=== PATIENT | male | born 1950 | race Caucasian/White ===

== ENCOUNTER 2023-10-06 13:29 | Outpatient (AMB) | payer MEDICARE, SELFPAY ==
--- NOTE | 2023-10-06 14:30 | MHC.OFFWIV ---
Intake Vital Signs 10/06/23 14:34 Height 5 ft 6 in Weight 186 lb BMI 30.0 BP 120/60 Blood Pressure Location Lt brachial Position Sitting Pulse 72 Pulse Source Pulse Oximeter Temp 98.3 F Temp Source Oral Pulse Oximetry (%) 96 Oxygen Delivery Method Room Air Intake Visit Reasons: [employer], pain left side of rib Intake Note: Pt is here today c/o Lt mid back pain: He says has a hx of kidney stones Patient Tobacco Use Status: Former Tobacco user Allergies Penicillins Adverse Reaction (Verified 10/06/23 14:34) rash HPI HPI Comments History of Present Illness Details This is a 73-year-old male with a past medical history of BPH currently maintained on tamsulosin and finasteride, hyperlipidemia, CVA currently anticoagulated with Coumadin, rbw-pabpwwr-gwjdrwyey diabetes and hypertension presenting for evaluation of left flank pain that he has had for the past 1 day. He reports that he is not urinating as frequently, but denies any dysuria or hematuria. Patient reports having kidney stones bilaterally and he passed a right-sided kidney stone approximately 1 month ago. Patient is followed in Urology by Dr. Liz. [facility] Social History Patient Tobacco Use Status: Former Tobacco user Review of Systems Const All systems reviewed & are unremarkable except as noted in HPI and below Denies chills, Denies fatigue and Denies fever(s) GI Reports abdominal pain (left flank pain) Reports as per HPI, Denies hematuria, Reports oliguria, Reports difficulty urinating and Denies urinary frequency Neuro Reports no additional complaints Psych Reports no additional complaints Endo Reports no additional complaints and Denies fatigue Physical Exam Vital Signs: Last Vital Signs Temp 98.3 F 10/06/23 14:34 Pulse 72 10/06/23 14:34 BP 120/60 10/06/23 14:34 Pulse Ox 96 10/06/23 14:34 Oxygen Delivery Method Room Air 10/06/23 14:34 BMI result Body Mass Index 30.0 Const General: cooperative, healthy appearing, comfortable and no acute distress Nutritional Appearance: overweight Orientation/consciousness: patient oriented x3 Limitations: no limitations GI Palpation (GI): Tenderness to palpation present (GI) (left flank; no CVAT bilaterally) Auscultation: normal bowel sounds General: Yes bladder normal to palpation and Yes no CVA tenderness Back/Spine/Pelvis Back: no CVA tenderness Skin General skin exam: no rashes or lesions noted (no lesions noted on the left flank) Neuro General: patient oriented x3 Psych Appearance: grossly normal Mental Status: mental status grossly normal Insight: Good insight present (Psych) Judgement: Good judgement present (Psych) Results AMB Urinalysis, Automated UA Leukoctes 0 Norm/uL Last Edit by Susan Kerns CMA on 10/06/23 14:54 UA Nitrite Negative Last Edit by Susan Kerns CMA on 10/06/23 14:54 UA Urobilinogen 0.2 mg/dL Last Edit by Susan Kerns CMA on 10/06/23 14:54 UA Protein 15 mg/dL Last Edit by Susan Kerns CMA on 10/06/23 14:54 UA pH 5.5 Last Edit by Susan Kerns CMA on 10/06/23 14:54 UA Blood 200 Mickey/uL Last Edit by Susan Kerns, ANA on 10/06/23 14:54 UA Specific [place] 1.030 Last Edit by Susan Kerns CMA on 10/06/23 14:54 UA Ketone Negative Last Edit by Susan Kerns CMA on 10/06/23 14:54 UA Bilirubin 0 mg/dL Last Edit by Susan Kerns CMA on 10/06/23 14:54 UA Glucose 0 mg/dL Last Edit by Susan Kerns CMA on 10/06/23 14:54 Results Reviewed Results Reviewed: Laboratory Last Values Urine pH (Auto) 5.5 10/06/23 14:52 Specific [place] (Auto) 1.030 10/06/23 14:52 Urine Protein (Auto) 15 mg/dL 10/06/23 14:52 Glucose (UA)(Auto) 0 mg/dL 10/06/23 14:52 Urine Ketones (Auto) Negative 10/06/23 14:52 Urine Blood (Auto) 200 Mickey/uL 10/06/23 14:52 Urine Nitrite (Auto) Negative 10/06/23 14:52 Urine Bilirubin (Auto) 0 mg/dL 10/06/23 14:52 Urine Urobilinogen (Auto) 0.2 mg/dL 10/06/23 14:52 Leukocyte Esterase (Auto) 0 Norm/uL 10/06/23 14:52 Urinalysis reviewed with patient Assessment & Plan Assessment & Plan (1) Flank pain: Comment: Given this patient's hematuria, urine culture will be sent however patient will be discharged home and instructed to use Tylenol as needed for his discomfort and oxycodone only as needed. MASSPAT reviewed prior to the prescription of narcotics. Patient will follow-up with urology as needed if his pain worsens. Code(s): R10.9 - Unspecified abdominal pain Orders: Orders AMB Urinalysis Automated 10/06/23 Z13.9 - Encounter for screening, unspecified Urine Culture 10/06/23 R10.9 - Unspecified abdominal pain Medications: New oxycodone Partial Fill upon patient request. 5 mg PO Q6-8H PRN 8 tabs 0RF severe pain Coding Level of Care Code New Pt Level 3 (16006) Diagnoses Flank pain R10.9 Time Spent (min) 30
[2023-10-06 14:34] VITALS: BP 120/60; PULSE 72; TEMP 36.8; O2SAT 96
== END 2023-10-06 15:26 | disposition home or self-care (01) ==
PROVIDERS: Visit Provider Physician Assistant
DX: R10.9 Unspecified abdominal pain (principal)
CPT/HCPCS: 81003; 99051; 99203

== ENCOUNTER 2023-10-06 14:57 | Outpatient (REF) | payer MEDICARE, SELFPAY | END 2023-10-06 14:58 | disposition home or self-care (01) | LOC: HO.LAB 14:57 | PROVIDERS: Visit Provider Physician Assistant | DX: R10.9 Unspecified abdominal pain (principal) | CPT/HCPCS: 87086; 87088 ==